=== PATIENT | female | born 1955 | race Caucasian/White ===

== ENCOUNTER 2018-01-11 10:10 | Inpatient (IN) | payer BC ==
[~2018-01-11] VITALS: Ht 157.5 cm; Wt 44.9 kg
[~2018-01-11 10:10] MED LIST: ASCORBIC ACID500 M3 PO; ASPIRIN325 MG PO; Aldactone PO; COQ-10100 MG PO; CYANOCOBALAM1000 MCG PO; Ecotrin PO; FOLIC ACID0.4 MG PO; Hydrodiuril,Oretic,E PO; LABETALOL HCL200 MG PO; LEVEMIR100 UNIT/2 SC; LISINOPRIL10 MG PO; Lopressor PO; MAGNESIUM OXID200 MG PO; NORVASC10 MG PO; NOVOLOG PE100 UNITS/ SC; VITAMIN B-6100 MG PO; VITAMIN D2000 UNIT PO; VITAMIN E400 UNIT PO; Xanax PO; ZESTRIL,PRINIVI10 M1 PO; [UNRECOGNIZED DRUG - OTHER]
[2018-01-11 10:48] LABS: ALBUMIN 4.2 g/dL (3.2-4.8); CHLORIDE 88 mEq/L (99-109); POTASSIUM 2.5 mEq/L (3.7-5.4); SODIUM 132 mEq/L (136-147)
[2018-01-11 10:52] LABS: GLUCOSE 618 mg/dL (70-99)
[2018-01-11 10:53] LABS: TOTAL BILIRUBIN 0.6 mg/dL (0.0-1.0)
[2018-01-11 10:54] LABS: ALKALINE PHOSPHATASE 56 IU/L (3-129); CREATININE 1.2 mg/dL (0.6-1.3); GFR ESTIMATE (CALCULATED) 49 mL/min/
[2018-01-11 10:55] LABS: UREA NITROGEN (BUN) 25 mg/dL (9-23)
[2018-01-11 10:56] LABS: AST (GOT) 21 IU/L (2-34)
[2018-01-11 10:57] LABS: ALT (GPT) 38 IU/L (3-49)
[2018-01-11 11:16] LABS: BASOPHIL (%) 0.4 % (0-1); EOSINOPHIL (%) 1.1 % (0-5); EOSINOPHIL COUNT 0.1 K/uL (0-0.3); HEMOGLOBIN 14.1 G/DL (11.9-15.5); IMMATURE GRANULOCYTE (%) 0.4 % (0.0-0.7); LYMPHOCYTE (%) 42.9 % (15-42); LYMPHOCYTE COUNT 2.3 K/uL (1.0-2.8); MCH 32.8 PG (29.0-34.0); MCHC 35.6 G/DL (30.0-36.0); MCV 92.1 FL (83-99); MONOCYTE (%) 8.8 % (3-12); MONOCYTE COUNT 0.5 K/uL (0-0.8); NEUTROPHIL (%) 46.4 % (45-76); NEUTROPHIL COUNT 2.5 K/uL (1.8-6.4); PLATELET COUNT 384 K/uL (156-360); RBC DIS.WIDTH-CV 12.5 % (11.8-14.6); RBC DIS.WIDTH-SD 38.2 % (39-53); WHITE BLOOD COUNT 5.3 K/uL (4.1-10.2)
[2018-01-11] MEDS ORDERED: LO-DOSE ASPIRIN81 M2 PO (12:37)
[2018-01-11] MEDS ORDERED: MULTIVITAMIN1 EAC2 PO (12:38)
[2018-01-11] MEDS ORDERED: ADVIL200 MG PO (12:38)
[2018-01-11] MEDS ORDERED: TYLENOL EXTRA500 MG PO (12:40)
[2018-01-11 16:00] VITALS: BP 141/90
[2018-01-11 18:59] VITALS: BP 177/102
[2018-01-11 19:38] VITALS: BP 186/108
[2018-01-11 23:00] VITALS: BP 155/88
[2018-01-12] VITALS (8 sets, daily range): BP systolic 120–171; BP diastolic 56–98
[2018-01-12 04:41] LABS: BASOPHIL (%) 0.3 % (0-1); EOSINOPHIL (%) 0.9 % (0-5); EOSINOPHIL COUNT 0.1 K/uL (0-0.3); HEMATOCRIT 32.3 % (36.0-46.0); HEMOGLOBIN 12.4 G/DL (11.9-15.5); IMMATURE GRANULOCYTE (%) 0.3 % (0.0-0.7); LYMPHOCYTE (%) 42.4 % (15-42); LYMPHOCYTE COUNT 3.8 K/uL (1.0-2.8); MCH 33.2 PG (29.0-34.0); MCHC 38.4 G/DL (30.0-36.0); MCV 86.4 FL (83-99); MONOCYTE (%) 9.3 % (3-12); MONOCYTE COUNT 0.8 K/uL (0-0.8); NEUTROPHIL (%) 46.8 % (45-76); NEUTROPHIL COUNT 4.2 K/uL (1.8-6.4); PLATELET COUNT 335 K/uL (156-360); RBC DIS.WIDTH-CV 12.8 % (11.8-14.6); RBC DIS.WIDTH-SD 39.8 % (39-53); RED BLOOD COUNT 3.74 M/uL (3.80-5.20)
[2018-01-12 04:48] LABS: SODIUM 134 mEq/L (136-147)
[2018-01-12 04:51] LABS: CHLORIDE 99 mEq/L (99-109); GLUCOSE 118 mg/dL (70-99); POTASSIUM 3.6 mEq/L (3.7-5.4)
[2018-01-12 04:54] LABS: CREATININE 0.8 mg/dL (0.6-1.3); GFR ESTIMATE (CALCULATED) > 59 mL/min/
[2018-01-12 04:55] LABS: UREA NITROGEN (BUN) 21 mg/dL (9-23)
[2018-01-12 05:04] LABS: HDL CHOLESTEROL 52 MG/DL (Desirable>=50); LDL CHOLESTEROL 86 mg/dL (Desirable<100); NON-HDL CHOLESTEROL 137 mg/dL (Desirable<160); TOTAL CHOLESTEROL 189 mg/dL (Desirable<200); TRIGLYCERIDES 257 MG/DL (Normal: <150)
[2018-01-12 12:47] LABS: HEMOGLOBIN A1c (GLYCOHEMOGLOB) 13.4 % (Below 5.7)
[2018-01-12 13:59] LABS: BENZODIAZEPINES, URINE SCREEN POSITIVE (200 ng/mL)
[2018-01-12 16:43] LABS: THYROTROPIN (TSH) 1.3 MIU/L (0.4-5.5)
[2018-01-13 03:30] VITALS: BP 137/79
[2018-01-13 05:43] LABS: BASOPHIL (%) 0.1 % (0-1); EOSINOPHIL (%) 0.1 % (0-5); HEMATOCRIT 32.8 % (36.0-46.0); HEMOGLOBIN 11.9 G/DL (11.9-15.5); IMMATURE GRANULOCYTE (%) 0.5 % (0.0-0.7); LYMPHOCYTE (%) 20.1 % (15-42); LYMPHOCYTE COUNT 2.1 K/uL (1.0-2.8); MCH 32.4 PG (29.0-34.0); MCHC 36.3 G/DL (30.0-36.0); MCV 89.4 FL (83-99); MONOCYTE (%) 12.1 % (3-12); MONOCYTE COUNT 1.2 K/uL (0-0.8); NEUTROPHIL (%) 67.1 % (45-76); NEUTROPHIL COUNT 6.9 K/uL (1.8-6.4); PLATELET COUNT 363 K/uL (156-360); RBC DIS.WIDTH-CV 12.9 % (11.8-14.6); RBC DIS.WIDTH-SD 41.9 % (39-53); RED BLOOD COUNT 3.67 M/uL (3.80-5.20); WHITE BLOOD COUNT 10.3 K/uL (4.1-10.2)
[2018-01-13 06:07] LABS: CHLORIDE 100 MEQ/L (99-109); CREATININE 0.7 MG/DL (0.6-1.3); GFR ESTIMATE (CALCULATED) > 59 mL/min/; POTASSIUM 4.1 MEQ/L (3.7-5.4); SODIUM 133 MEQ/L (136-147); UREA NITROGEN (BUN) 18 mg/dL (9-23)
[2018-01-13 06:28] LABS: GLUCOSE 55 mg/dL (70-99)
[2018-01-13 08:03] VITALS: BP 135/72
[2018-01-13] MEDS ORDERED: INSULIN SYRING1 EA11 MC (10:46)
[2018-01-13] MEDS ORDERED: GLUCOMETER MC (10:46)
[2018-01-13] MEDS ORDERED: LEVEMIR100 UNIT/2 SC (10:46)
[2018-01-13] MEDS ORDERED: LISINOPRIL20 MG PO (10:46)
[2018-01-13] MEDS ORDERED: TEST STRIPS MC (10:46)
[2018-01-13] MEDS ORDERED: DILTIAZEM 24HR240 MG PO (10:46)
[2018-01-13] MEDS ORDERED: 1ST TIER UNILE1 EAC1 MC (10:46)
== END 2018-01-13 12:00 | disposition home or self-care (01) | DRG 305 ==
LOC: EME 10:10 → ENRESERV 13:40 → EME 14:34 → 4EAST 14:34 → EME 15:35 → ENRESERV 15:37 → CANRESERV 15:37 → ENRESERV 15:39 → 4EAST 17:24
PROVIDERS: Emergency Medicine; Hospitalist; Internal Medicine
DX: I16.0 Hypertensive urgency (principal); I10 Essential (primary) hypertension; E11.65 Type 2 diabetes mellitus with hyperglycemia; E87.6 Hypokalemia; R63.4 Abnormal weight loss; R00.0 Tachycardia, unspecified; E78.5 Hyperlipidemia, unspecified; Z68.1 Body mass index [BMI] 19.9 or less, adult; Z88.8 Allergy status to other drugs, medicaments and biological substances; Z91.14 Patient's other noncompliance with medication regimen; Z90.710 Acquired absence of both cervix and uterus
CPT/HCPCS: 71045; 80048; 80048 91; 80053; 80061; 80306 90; 82948; 83036; 84443; 84484; 85025; 93005; 99281; 99285; J0360; J1644; J2405; J3480; J7030